=== PATIENT | female | born 2000 | race Caucasian/White ===

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

== ENCOUNTER → 2021-10-26 14:50 | Outpatient (CLI) | payer OTHER, SELFPAY ==
[2021-10-26 15:43] LABS: Appearance Urine UA CLEAR; Bilirubin Urine UA NEGATIVE (NEGATIVE); Color Urine UA YELLOW; Glucose Urine UA NEGATIVE (Negative); Ketones Urine UA NEGATIVE (NEGATIVE); Leukocyte Esterase Urine UA NEGATIVE (NEGATIVE); Nitrite Urine UA NEGATIVE (Negative); Occult Blood Urine UA NEGATIVE (Negative); Protein Urine UA NEGATIVE (Negative); Urobilinogen Urine UA 0.2 E.U./dL (0.2)
[2021-10-26 15:46] LABS: pH Urine UA 6.5 (4.5-8.0)
[2021-10-26 16:45] LABS: Add Manual Diff / Slide Review NO; Basophils Absolute Auto 0 /uL (0-100); Basophils Percent Auto 0.1 % (0-2); Eosinophils Absolute Auto 100 /uL (0-450); Eosinophils Percent Auto 0.7 % (2-4); Hematocrit 36.7 % (36-46); Hemoglobin 12.9 g/dL (12.0-16.0); Lymphocytes Absolute Auto 1600 /uL (1100-4500); Lymphocytes Percent Auto 17.6 % (25-40); Mean Corpuscular HGB Conc 35.1 % (30-36); Mean Corpuscular Hemoglobin 29.3 PG (26-34); Mean Corpuscular Volume 83.6 fL (80-100); Monocytes Absolute Auto 500 /uL (0-900); Monocytes Percent Auto 5.3 % (3-14); Neutrophils Absolute Auto 7000 /uL (1500-7000); Neutrophils Percent Auto 76.3 % (50-75); Platelet Count 238 X10^3/uL (150-400); Red Blood Cell Count 4.39 X10^6/uL (4.0-5.2); Red Cell Distribution Width 12.4 % (11.6-14.8); White Blood Cell Count 9.1 X10^3/uL (4.5-11.0)
[2021-10-26 17:12] LABS: Urine N gonorrhoeae NOT DETECTED
[2021-10-26 18:12] LABS: Urine Chlamydia NOT DETECTED
[2021-10-27 09:46] LABS: RPR Screen Non Reactive (Non Reactive)
[2021-10-27 10:17] LABS: Varicella IgG Antibody 1882 index (Immune >165)
[2021-10-28 15:48] LABS: Hepatitis B Surface Antigen NEGATIVE s/c (NEGATIVE); Rubella Antibody IgG 15.3 IU/mL (>15)
[2021-10-28 15:57] LABS: HIV 1 & 2 Ab/Ag 4th Gen Combo NEGATIVE (NEGATIVE); Hep C Virus Ab w/Reflex Quant NEGATIVE s/c (NEGATIVE)
== END ==
PROVIDERS: PCP Nurse Practitioner Family; Referring Provider Family Medicine; Visit Provider Family Medicine
DX: Z34.01 Encounter for supervision of normal first pregnancy, first trimester (principal); Z3A.09 9 weeks gestation of pregnancy
CPT/HCPCS: 36415; 80055; 81003; 86787; 86803; 86850; 86900; 86901; 87086; 87389; 87491; 87591

== ENCOUNTER → 2022-01-13 10:40 | Outpatient (CLI) | payer OTHER, SELFPAY ==
--- NOTE | 2022-01-13 10:43 | DI.US.S_ITS ---
PROCEDURE: US OB >= 14 WEEKS FETUS INDICATIONS: ANATOMY SCREEN OUTSIDE/PRIOR DATING DATA: Last menstrual period (LMP): 08/24/2021 LMP-based estimated date of delivery (ADOLFO): 05/31/2022. First dating scan (date and location): Today. TECHNIQUE: Real-time scanning was performed of the fetus, with image documentation and biometric measurements. COMPARISON: None. FINDINGS: General: A single living intrauterine gestation is present. Presentation: Cephalic. Placenta: Placental position is anterior , without previa. Amniotic fluid index: Not reported heart rate: 149 beats per minute. Maternal cervical canal: 4.6 cm long. Normal lower limit is 2.5 cm. biometrics: Biparietal diameter: 4.8 cm. 20 weeks 4 days. Head circumference: 18.2 cm. 20 weeks 4 days. Abdominal circumference: 14.5 cm. 19 weeks 6 days. Femur length: 3.5 cm. 21 weeks 0 days. Composite gestational age from present scan: 20 weeks 4 days Estimated weight and percentile: 351 grams. 51st percentile. Anatomic survey: Neuro: Ventricles are non-dilated at less than 10 mm. Cisterna magna is normal at 3-11 mm. Cerebellum is normal in size and morphology. Nuchal skin fold: Normal at less than 6 mm between 14-21 weeks gestational age. Face: Nose and lips, facial profile are normal. Spine: No evidence for spina bifida. Heart: 4-chambered heart is present, with normal ventricular outflow tracts. Diaphragm: Diaphragm is intact. Stomach: Left-sided stomach is present. Kidneys: No hydronephrosis. Normal is less than 5 mm in 2nd trimester, less than 7 mm in 3rd trimester. Cord: 3-vessel cord has orthotopic insertion. Bladder: Normal in size. Extremities: The right and left lower limbs were not visualized well due to being under the baby's kidneys and difficulty with visualization. IMPRESSION: 1. Single live intrauterine . 2. Visualized anatomy is normal, however the feet were not well visualized. We strive to produce accurate, complete, and clear reports of imaging services. To assist us in improving patient care, this report was composed using standard report templates and voice recognition software. Therefore, it may contain abnormal punctuation, insertions and/or omissions. Occasional wrong-word or sound-alike substitutions may occur. Though we review the report and make efforts to correct it, we do recommend that the report be read carefully in proper context to recognize any text inaccuracies. Dictated by: Camilo Gates M.D. on 01/13/2022 at 14:34 Approved by: Camilo Gates M.D. on 01/13/2022 at 14:38
== END ==
PROVIDERS: PCP Nurse Practitioner Family; Referring Provider Family Medicine; Visit Provider Family Medicine
DX: Z34.92 Encounter for supervision of normal pregnancy, unspecified, second trimester (principal); Z3A.20 20 weeks gestation of pregnancy
CPT/HCPCS: 76811

== ENCOUNTER → 2022-01-26 10:39 | Outpatient (CLI) | payer OTHER, SELFPAY ==
--- NOTE | 2022-01-26 10:41 | DI.US.S_ITS ---
PROCEDURE: US OB FOLLOW UP INDICATIONS: FOLLOW UP 01/13/22 ANATOMY SCAN, FEET NOT SEEN OUTSIDE/PRIOR DATING DATA: Last menstrual period (LMP): 08/24/2021. LMP-based estimated date of delivery (ADOLFO): 05/31/2022. First dating scan (date and location): 01/13/2022. Estimated date of delivery (ADOLFO) from first dating scan: 05/29/2022. TECHNIQUE: Real-time scanning was performed of the fetus, with image documentation and biometric measurements. Endovaginal scanning: Non COMPARISON: None. FINDINGS: General: A single living intrauterine gestation is present. Presentation: Cephalic. Placenta: Placental position is anterior , without previa. Amniotic fluid index: 14.2 cm, normal range is 5-24 cm. Single deepest vertical pocket is 4.9 cm. heart rate: 149 beats per minute. Maternal cervical canal: 3.5 cm long. Normal lower limit is 2.5 cm. Clinically estimated gestational age: 22 week 1 day Anatomic survey: Visualized anatomy is within normal limits. feet are still suboptimally visualized IMPRESSION: Suboptimally visualized feet and ankles ankles. Consider additional follow-up Single live intrauterine consistent with 22 week 1 day gestation Approved by: Venkata Milian M.D. on 01/26/2022 at 15:35
== END ==
PROVIDERS: PCP Nurse Practitioner Family; Referring Provider Family Medicine; Visit Provider Family Medicine
DX: Z34.90 Encounter for supervision of normal pregnancy, unspecified, unspecified trimester (principal); Z36.2 Encounter for other antenatal screening follow-up; Z3A.22 22 weeks gestation of pregnancy
CPT/HCPCS: 76816

== ENCOUNTER 2022-02-18 12:05 | Outpatient (CLI) | payer OTHER, SELFPAY | END 2022-02-18 12:50 | disposition home or self-care (01) | LOC: OB 02-21 17:14 | PROVIDERS: PCP Nurse Practitioner Family; Referring Provider Family Medicine; Visit Provider Family Medicine | DX: Z34.02 Encounter for supervision of normal first pregnancy, second trimester (principal); Z3A.25 25 weeks gestation of pregnancy | CPT/HCPCS: 36415; 59025; 80053; 82570; 84156; 85025; G0378; G0379 ==

== ENCOUNTER → 2022-02-18 12:54 | Outpatient (CLI) | payer OTHER, SELFPAY ==
[2022-02-18 14:17] LABS: Add Manual Diff / Slide Review NO; Basophils Absolute Auto 0 /uL (0-100); Eosinophils Absolute Auto 0 /uL (0-450); Eosinophils Percent Auto 0.5 % (2-4); Hematocrit 32.2 % (36-46); Hemoglobin 11.4 g/dL (12.0-16.0); Lymphocytes Absolute Auto 1000 /uL (1100-4500); Lymphocytes Percent Auto 10.3 % (25-40); Mean Corpuscular HGB Conc 35.5 % (30-36); Mean Corpuscular Hemoglobin 30.8 PG (26-34); Mean Corpuscular Volume 86.7 fL (80-100); Monocytes Absolute Auto 400 /uL (0-900); Monocytes Percent Auto 4.4 % (3-14); Neutrophils Absolute Auto 8400 /uL (1500-7000); Neutrophils Percent Auto 84.8 % (50-75); Platelet Count 204 X10^3/uL (150-400); Red Blood Cell Count 3.71 X10^6/uL (4.0-5.2); White Blood Cell Count 9.9 X10^3/uL (4.5-11.0)
[2022-02-18 14:44] LABS: Alanine Aminotransferase 16 IU/L (<35); Albumin 3.5 g/dL (3.5-5.0); Albumin Globulin Ratio 1.2 (1.0-2.8); Alkaline Phosphatase 86 U/L (38-126); Aspartate Aminotransferase 18 IU/L (14-36); BUN Creatinine Ratio 14.1 (6-22); Bilirubin Total 0.4 mg/dL (0.2-1.3); Blood Urea Nitrogen 10 mg/dL (7-17); Calcium 9.2 mg/dL (8.4-10.2); Carbon Dioxide 23 mmol/L (22-32); Chloride 103 mmol/L (98-107); Estimated Glomerular Filt Rate > 60 mL/min (>60); Glucose 112 mg/dL (70-100); HEMOLYSIS < 15 (0-50); Potassium 3.7 mmol/L (3.4-5.1); Sodium 135 mmol/L (137-145); Total Protein 6.5 g/dL (6.3-8.2)
[2022-02-18 15:29] LABS: Creatinine Urine Random 42.2 mg/dL; Protein (Total) Urine Random 14 mg/dL (0-12); Protein Creatinine Ratio Urine 0.33 GRAM/24H
== END ==
PROVIDERS: PCP Nurse Practitioner Family; Referring Provider Family Medicine; Visit Provider Family Medicine
DX: Z34.02 Encounter for supervision of normal first pregnancy, second trimester (principal); Z3A.25 25 weeks gestation of pregnancy
CPT/HCPCS: 36415; 80053; 82570; 84156; 85025

== ENCOUNTER → 2022-02-28 13:04 | Outpatient (CLI) | payer OTHER, SELFPAY ==
[2022-02-28 16:07] LABS: GTT (PREG) 1 Hour PP 50gm Dose 168 mg/dL (76-139)
== END ==
PROVIDERS: PCP Nurse Practitioner Family; Referring Provider Family Medicine; Visit Provider Family Medicine
DX: Z34.92 Encounter for supervision of normal pregnancy, unspecified, second trimester (principal); Z3A.25 25 weeks gestation of pregnancy
CPT/HCPCS: 36415; 82950

== ENCOUNTER → 2022-03-28 10:31 | Outpatient (CLI) | payer OTHER, SELFPAY ==
[2022-03-28 11:34] LABS: Glucose Fasting 81 mg/dL (70-100)
[2022-03-28 13:43] LABS: Glucose 2 Hour 156 mg/dL (70-140)
[2022-03-28 13:51] LABS: Glucose 1 Hour 167 mg/dL (70-170)
[2022-03-28 14:07] LABS: Glucose Tol Interpretation INTERPRETATION
[2022-03-28 14:20] LABS: Glucose 3 Hour 102 mg/dL (70-115)
== END ==
PROVIDERS: Family Medicine; PCP Nurse Practitioner Family; Visit Provider Physician Assistant
DX: Z34.01 Encounter for supervision of normal first pregnancy, first trimester (principal); R73.9 Hyperglycemia, unspecified
CPT/HCPCS: 82951; 82952

== ENCOUNTER 2022-04-11 11:28 | Outpatient (CLI) | payer OTHER, SELFPAY ==
--- NOTE | 2022-04-11 11:35 | PM.OBTRLD ---
Visit Information Visit Information Date of evaluation: 04/11/22 Primary OB Provider: Annabel Bradley Comments/Additional reasons for admission: 21yo at 32w5d here for NST for chronic HTN. She is feeling her baby move regularly. No LOF, vaginal bleeding, contractions. REPLACED BY [facility] Medical History (Updated 04/11/22 @ 12:14 by Annabel Bradley MD) Acne (~2016) ADHD (~2008) Vision disorder Surgical History (Updated 11/25/21 @ 20:31 by Mariam Sotomayor) Anesthesia H/O tympanostomy (~2002) [place] teeth extracted Family History (Updated 11/25/21 @ 20:33 by Mariam Sotomayor) Family/Other Hypertension Adopted Mother Family estrangement Mental health problem Father Hypertension Sister Mental health problem Grandfather History of heart disease Social History marital status: number of children: 0 household members: spouse lives independently: Yes housing: apartment pets and animals: Yes (1 dog, 1 tortoise) education level: vocational occupational status: employed current occupational exposures/hazards: No special leo needs: No seatbelt use: always water heater temp set < 120 deg: No working smoke detector in home: Yes fire extinguisher in home: Yes carbon monox detector in home: Yes firearms in home: No do you feel safe at home: Yes Smoking Status: Former smoker Tobacco: How many years used: 2 second hand exposure: No alcohol intake: never substance use type: does not use during the past year weight has: remained stable well-balanced diet: daily or most days daily servings fruits/ve-4 caffeine: Yes Type(s) of exercise: walking and regular exercise frequency: 3-4 times per week Evaluation Evaluation Baseline heart rate: 150 Variability: Moderate (11-25) monitor accelerations: Present Monitor Decelerations: Absent Category of Tracing: Reactive Diagnosis, Plan/Disposition Final Diagnosis (1) Primary hypertension: Status: Acute (2) 32 weeks gestation of : Status: Acute Plan/Disposition Plan: 21yo at 32w5d her for NST for cHTN. NST reactive. BP good range. Continue regular testing. OB Disposition: home
== END 2022-04-11 12:05 | disposition home or self-care (01) ==
LOC: OB 04-13 08:15
PROVIDERS: PCP Nurse Practitioner Family; Referring Provider Family Medicine; Visit Provider Family Medicine
DX: O10.913 Unspecified pre-existing hypertension complicating pregnancy, third trimester (principal); Z3A.32 32 weeks gestation of pregnancy
CPT/HCPCS: 59025; G0378; G0379

== ENCOUNTER → 2022-04-12 14:32 | Outpatient (CLI) | payer OTHER, SELFPAY ==
--- NOTE | 2022-04-13 16:24 | DIAB.GDA ---
Initial Gestational Diabetes Assessment Name: Brenda Sesay Date:04/12/22 Time:5-537p Dx: Gestational Diabetes Provider:Kirk ADOLFO:06/01/22 Weeks: 33 Brenda presents today for virtual visit by VSEE. Reports she is unsure of DM family hx since her father is adopted. States she has changed her diet quite a bit since diagnosis, cutting out most carbs. Reports normally eating pasta frequently due to 's [place] ethnic background. Diagnosed with HTN by MFM per provider notes. BP in goal range. 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 States she has limited education on GDM, though is aware that the baby can have hypoglycemia . Diet Recall: Wake: 530a 7a: omelet with 3 eggs, cheese, turkey lambert 12p: salad with chicken Sn: apple sauce or cheese 7p: zucchini and cauliflower rice with protein Beverages: water 80oz It?s a boy! 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 Self-Monitoring Blood Glucose: Checking FBG and 2 hour. Goes to bed 1.5 hours after dinner, so often misses the 2 hour dinner. All readings well within goal, except one elevated FBG of 99. Some pc readings <100 due to very low carb diet. Date Pre Post Pre Post Pre Post 04/06 78 85 105 04/07 89 80 84 04/08 99 85 85 04/09 83 89 95 04/10 90 95 107 Family thanksgiving 04/11 83 84 104 04/12 95 86 88 Diabetes Medications: None Pertinent Labs:OGTT: 81, 167, 156H 102 Nutrition Rx: Carbohydrates: Daily: 180 Meal: 45-60g lunch and dinner; 30g breakfast Snack: 15-30g Nutrition Diagnosis: Altered nutrition related lab value r/t GDM dx aeb recent OGTT Inadequate CHO intake r/t <180g per day during due to nutrition knowledge deficit aeb diet recall Self monitoring deficit r/t unaware she can check 1 hour after dinner aeb pt report and SMBG Intervention: This participant was very receptive. Provided appropriate educational handouts. Discussed the following topics: GDM pathophysiology and impact of hyperglycemia on mom and baby Risk for T2DM for mom and baby in the future Ways to reduce risk T2DM Plate Method, meal timing, carb counting, pairing macronutrients and spreading out CHO for better BG management Blood glucose goals (FBG: <95 and 2 hour 100-120 mg/dL and 1 hour 110-140mg/dl prn); importance of checking 4x per day (FBG and pc) Impact of macronutrients on blood glucose Recommended servings for carbohydrates at meals and snacks Brainstormed appropriate meal plan based on her food preferences Role of physical activity and following provider guidelines for safety Goals: Add some carbs into diet in moderation Measure carb portions For dinner, check 1 hour and label as 1 hour (goal <140) Follow-up: RENETTA CONNOLLY follow-up in 2 weeks Hortensia Barney RDN, SHAMIKAES Certified Diabetes Care and Photographers' Model T: [phone] F: [phone] [email or web address] Thank you for this referral
== END ==
PROVIDERS: PCP Nurse Practitioner Family; Referring Provider Family Medicine; Visit Provider Family Medicine
DX: O24.419 Gestational diabetes mellitus in pregnancy, unspecified control (principal); Z3A.33 33 weeks gestation of pregnancy; Z71.3 Dietary counseling and surveillance
CPT/HCPCS: 97802

== ENCOUNTER 2022-04-15 11:41 | Outpatient (CLI) | payer OTHER, SELFPAY ==
--- NOTE | 2022-04-15 12:33 | P.TNLD_ITS ---
Visit Information Visit Information Date of evaluation: 04/15/22 Primary OB Provider: Annabel Bradley On-call OB Provider: Hemant Mcbride Reason for Evaluation: Yes non-stress test Comments/Additional reasons for admission: 21 yo at 33+2 weeks EGA presenting for her weekly NST due to her history of chronic hypertension. [facility] Medical History (Updated 04/11/22 @ 12:14 by Annabel Bradley MD) Acne (~2016) ADHD (~2008) Vision disorder Surgical History (Updated 11/25/21 @ 20:31 by Mariam Sotomayor) Anesthesia H/O tympanostomy (~2002) [place] teeth extracted Family History (Updated 11/25/21 @ 20:33 by Mariam Sotomayor) Family/Other Hypertension Adopted Mother Family estrangement Mental health problem Father Hypertension Sister Mental health problem Grandfather History of heart disease Social History marital status: number of children: 0 household members: spouse lives independently: Yes housing: apartment pets and animals: Yes (1 dog, 1 tortoise) education level: vocational occupational status: employed current occupational exposures/hazards: No special leo needs: No seatbelt use: always water heater temp set < 120 deg: No working smoke detector in home: Yes fire extinguisher in home: Yes carbon monox detector in home: Yes firearms in home: No do you feel safe at home: Yes Smoking Status: Former smoker Tobacco: How many years used: 2 second hand exposure: No alcohol intake: never substance use type: does not use during the past year weight has: remained stable well-balanced diet: daily or most days daily servings fruits/ve-4 caffeine: Yes Type(s) of exercise: walking and regular exercise frequency: 3-4 times per week Evaluation Evaluation Baseline heart rate: 145 Variability: Moderate (11-25) monitor accelerations: Present Monitor Decelerations: Absent Category of Tracing: Reactive Status: Category l Diagnosis, Plan/Disposition Plan/Disposition Plan: Continue pernatal care plan including weekly surveillance.
== END 2022-04-15 12:30 | disposition home or self-care (01) ==
LOC: OB 04-17 11:22
PROVIDERS: PCP Nurse Practitioner Family; Referring Provider Family Medicine; Visit Provider Family Medicine
DX: O10.913 Unspecified pre-existing hypertension complicating pregnancy, third trimester (principal); Z3A.33 33 weeks gestation of pregnancy
CPT/HCPCS: 59025; G0378; G0379

== ENCOUNTER → 2022-04-26 17:11 | Outpatient (CLI) | payer OTHER, SELFPAY ==
[2022-04-26 18:39] LABS: Alanine Aminotransferase 15 IU/L (<35); Albumin 3.9 g/dL (3.5-5.0); Albumin Globulin Ratio 1.1 (1.0-2.8); Alkaline Phosphatase 142 U/L (38-126); Aspartate Aminotransferase 19 IU/L (14-36); BUN Creatinine Ratio 19.4 (6-22); Bilirubin Total 0.4 mg/dL (0.2-1.3); Blood Urea Nitrogen 12 mg/dL (7-17); Calcium 10.3 mg/dL (8.4-10.2); Carbon Dioxide 21 mmol/L (22-32); Chloride 100 mmol/L (98-107); Estimated Glomerular Filt Rate > 60 mL/min (>60); Globulin 3.4 g/dL (1.7-4.1); Glucose 86 mg/dL (70-100); HEMOLYSIS < 15 (0-50); Potassium 3.8 mmol/L (3.4-5.1); Sodium 131 mmol/L (137-145); Total Protein 7.3 g/dL (6.3-8.2); Uric Acid 4.5 mg/dL (2.5-6.2)
[2022-04-26 19:22] LABS: Add Manual Diff / Slide Review NO; Basophils Absolute Auto 0 /uL (0-100); Basophils Percent Auto 0.1 % (0-2); Eosinophils Absolute Auto 100 /uL (0-450); Eosinophils Percent Auto 0.6 % (2-4); Hematocrit 33.3 % (36-46); Hemoglobin 11.6 g/dL (12.0-16.0); Lymphocytes Absolute Auto 1400 /uL (1100-4500); Lymphocytes Percent Auto 14.3 % (25-40); Mean Corpuscular Hemoglobin 29.9 PG (26-34); Mean Corpuscular Volume 85.6 fL (80-100); Monocytes Absolute Auto 500 /uL (0-900); Monocytes Percent Auto 5.5 % (3-14); Neutrophils Absolute Auto 7600 /uL (1500-7000); Neutrophils Percent Auto 79.5 % (50-75); Platelet Count 199 X10^3/uL (150-400); Red Blood Cell Count 3.89 X10^6/uL (4.0-5.2); White Blood Cell Count 9.5 X10^3/uL (4.5-11.0)
[2022-04-26 19:47] LABS: Creatinine Urine Random 102.4 mg/dL; Protein (Total) Urine Random 14 mg/dL (0-12); Protein Creatinine Ratio Urine 0.13 GRAM/24H
== END ==
PROVIDERS: PCP Nurse Practitioner Family; Referring Provider Family Medicine; Visit Provider Family Medicine
DX: Z3A.25 25 weeks gestation of pregnancy; O14.92 Unspecified pre-eclampsia, second trimester
CPT/HCPCS: 36415; 80053; 82570; 84156; 84550; 85025

== ENCOUNTER 2022-04-26 17:26 | Outpatient (CLI) | payer OTHER, SELFPAY ==
--- NOTE | 2022-04-26 18:14 | P.TNLD_ITS ---
Visit Information Visit Information Date of evaluation: 04/26/22 Primary OB Provider: Annabel Bradley On-call OB Provider: Hemant Mcbride Reason for Evaluation: Yes non-stress test Comments/Additional reasons for admission: 21 yo at 34+6 w/ chronic HTN and GDM A1 PFSH Medical History (Updated 04/11/22 @ 12:14 by Annabel Bradley MD) Acne (~2016) ADHD (~2008) Vision disorder Surgical History (Updated 11/25/21 @ 20:31 by Mariam Sotomayor) Anesthesia H/O tympanostomy (~2002) [place] teeth extracted Family History (Updated 11/25/21 @ 20:33 by Mariam Sotomayor) Family/Other Hypertension Adopted Mother Family estrangement Mental health problem Father Hypertension Sister Mental health problem Grandfather History of heart disease Social History marital status: number of children: 0 household members: spouse lives independently: Yes housing: apartment pets and animals: Yes (1 dog, 1 tortoise) education level: vocational occupational status: employed current occupational exposures/hazards: No special leo needs: No seatbelt use: always water heater temp set < 120 deg: No working smoke detector in home: Yes fire extinguisher in home: Yes carbon monox detector in home: Yes firearms in home: No do you feel safe at home: Yes Smoking Status: Former smoker Tobacco: How many years used: 2 second hand exposure: No alcohol intake: never substance use type: does not use during the past year weight has: remained stable well-balanced diet: daily or most days daily servings fruits/ve-4 caffeine: Yes Type(s) of exercise: walking and regular exercise frequency: 3-4 times per week
== END 2022-04-26 18:14 | disposition home or self-care (01) ==
LOC: LABOR 17:38 → OB 05-05 16:17
PROVIDERS: PCP Nurse Practitioner Family; Referring Provider Family Medicine; Visit Provider Family Medicine
DX: O24.419 Gestational diabetes mellitus in pregnancy, unspecified control (principal); O10.913 Unspecified pre-existing hypertension complicating pregnancy, third trimester; Z3A.34 34 weeks gestation of pregnancy; O14.92 Unspecified pre-eclampsia, second trimester; Z3A.25 25 weeks gestation of pregnancy
CPT/HCPCS: 36415; 59025; 80053; 82570; 84156; 84550; 85025; G0378; G0379

== ENCOUNTER → 2022-04-27 13:48 | Outpatient (CLI) | payer OTHER, SELFPAY ==
--- NOTE | 2022-04-27 16:49 | DIAB.GDFU ---
Follow-up Gestational Diabetes Assessment Name: Brenda Sesay Date: 04/27/22 Time: 108-130p Dx: Gestational Diabetes Provider:Kirk ADOLFO:06/01/22 Weeks: 35 Brenda presents today for virtual visit by MILLY. Added some carbs back into her diet in moderation, as discussed. Measuring pasta, 1cup. Satisfied with portions. MFM increased labetalol to 200. Reports plan for induction at 39 weeks. Breakfast high in carb intake, but she reports in goal BG. May benefit from a 1 hour check to see if BG in goal at that time as well. Don't anticipate hyperglycemia, but with >30g at breakfast may be worth a check. 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 Self-Monitoring Blood Glucose: Checking FBG and 2 hour. Goes to bed 1.5 hours after dinner, so often misses the 2 hour dinner. Has trialled 1 hour checks at dinner, BG always in goal. reports FB-94mg/dL and 2 hour: mid 90-low 100s. Checked a few after dinner numbers. Always under 120 at 1 hour. Diabetes Medications: None Pertinent Labs:OGTT: 81, 167, 156H 102 Nutrition Rx: Carbohydrates: Daily: 180 Meal: 45-60g lunch and dinner; 30g breakfast Snack: 15-30g Nutrition Diagnosis: Altered nutrition related lab value r/t GDM dx aeb recent OGTT Inadequate CHO intake r/t <180g per day during due to nutrition knowledge deficit aeb diet recall- improved Self monitoring deficit r/t unaware she can check 1 hour after dinner aeb pt report and SMBG - improved Intervention: This participant was very receptive. Provided appropriate educational handouts. Discussed the following topics: Recent blood sugar results Breakfast recs for carb/protein Benefits, resources, and nutrition for recommendations for nutrition and physical activity recommendations for T2DM risk reduction OGTT at 6-12 weeks Checking blood sugars twice per week (goal: fasting <100 mg/dL and 2 hour pc <140 mg/dL) until 6 week check-up HgA1c q 1-3 years. Goals: Add some carbs into diet in moderation- met Measure carb portions- met For dinner, check 1 hour and label as 1 hour (goal <140)- met Check breakfast BG at 1 hour a couple times to check for hyperglycemia- new OGTT at 6-12 weeks and HgA1c q 1-3 years- new Follow-up: RENETTA CONNOLLY follow-up prn. Brenda is managing her BG well. Encouraged her to call or message with questions or follow-up needs. She agreed with this plan. Hortensia Barney RDN, CATHLEEN Certified Diabetes Care and Procedure Writer T: [phone] F: [phone] [email or web address] Thank you for this referral
== END ==
PROVIDERS: PCP Nurse Practitioner Family; Referring Provider Family Medicine; Visit Provider Family Medicine
DX: O24.419 Gestational diabetes mellitus in pregnancy, unspecified control (principal); Z3A.35 35 weeks gestation of pregnancy; Z71.3 Dietary counseling and surveillance
CPT/HCPCS: 97803

== ENCOUNTER 2022-04-29 17:39 | Outpatient (CLI) | payer OTHER, SELFPAY | END 2022-04-29 18:12 | disposition home or self-care (01) | LOC: OB 05-05 16:08 | PROVIDERS: PCP Nurse Practitioner Family; Referring Provider Family Medicine; Visit Provider Family Medicine | DX: O24.419 Gestational diabetes mellitus in pregnancy, unspecified control (principal); O10.913 Unspecified pre-existing hypertension complicating pregnancy, third trimester; Z3A.35 35 weeks gestation of pregnancy | CPT/HCPCS: 59025; G0378; G0379 ==

== ENCOUNTER → 2022-05-02 09:20 | Outpatient (CLI) | payer OTHER, SELFPAY ==
[2022-05-03 14:52] LABS: Strep Grp B PCR NEG for Grp B Strep
== END ==
PROVIDERS: PCP Nurse Practitioner Family; Visit Provider Family Medicine
DX: Z36.85 Encounter for antenatal screening for Streptococcus B (principal)
CPT/HCPCS: 87653

== ENCOUNTER 2022-05-02 10:59 | Outpatient (CLI) | payer OTHER, SELFPAY ==
--- NOTE | 2022-05-02 11:28 | P.TNLD_ITS ---
Visit Information Visit Information Date of evaluation: 05/02/22 Primary OB Provider: Annabel Bradley Comments/Additional reasons for admission: 21 yo at 35w5d here for NST for chronic HTN. Pt is feeling her baby move regularly. No LOF, vaginal bleeding, contractions. No signs/symptoms of pre- eclampsia. [facility] Medical History (Updated 05/02/22 @ 11:17 by Annabel Bradley MD) Acne (~2016) ADHD (~2008) Vision disorder Surgical History (Updated 11/25/21 @ 20:31 by aMriam Sotomayor) Anesthesia H/O tympanostomy (~2002) [place] teeth extracted Family History (Updated 11/25/21 @ 20:33 by Mariam Sotomayor) Family/Other Hypertension Adopted Mother Family estrangement Mental health problem Father Hypertension Sister Mental health problem Grandfather History of heart disease Social History marital status: number of children: 0 household members: spouse lives independently: Yes housing: apartment pets and animals: Yes (1 dog, 1 tortoise) education level: vocational occupational status: employed current occupational exposures/hazards: No special leo needs: No seatbelt use: always water heater temp set < 120 deg: No working smoke detector in home: Yes fire extinguisher in home: Yes carbon monox detector in home: Yes firearms in home: No do you feel safe at home: Yes Smoking Status: Former smoker Tobacco: How many years used: 2 second hand exposure: No alcohol intake: never substance use type: does not use during the past year weight has: remained stable well-balanced diet: daily or most days daily servings fruits/ve-4 caffeine: Yes Type(s) of exercise: walking and regular exercise frequency: 3-4 times per week Evaluation Evaluation Baseline heart rate: 150 Variability: Moderate (11-25) monitor accelerations: Present Monitor Decelerations: Absent Category of Tracing: Reactive Diagnosis, Plan/Disposition Final Diagnosis (1) Primary hypertension: Status: Acute Plan/Disposition Plan: 21 yo at 35w5d here for NST for chronic HTN. also complicated by GDMA1. NST reactive. Continue testing. OB Disposition: home
== END 2022-05-02 11:32 | disposition home or self-care (01) ==
LOC: OB 05-05 16:12
PROVIDERS: PCP Nurse Practitioner Family; Referring Provider Family Medicine; Visit Provider Family Medicine
DX: O24.419 Gestational diabetes mellitus in pregnancy, unspecified control (principal); O10.913 Unspecified pre-existing hypertension complicating pregnancy, third trimester; Z3A.35 35 weeks gestation of pregnancy; Z36.85 Encounter for antenatal screening for Streptococcus B
CPT/HCPCS: 59025; 87653; G0378; G0379

== ENCOUNTER 2022-05-06 17:53 | Outpatient (CLI) | payer OTHER, SELFPAY | END 2022-05-06 18:24 | disposition home or self-care (01) | LOC: LABOR 17:55 → OB 05-12 12:27 | PROVIDERS: PCP Nurse Practitioner Family; Referring Provider Family Medicine; Visit Provider Family Medicine | DX: O10.913 Unspecified pre-existing hypertension complicating pregnancy, third trimester (principal); O24.419 Gestational diabetes mellitus in pregnancy, unspecified control; Z3A.36 36 weeks gestation of pregnancy | CPT/HCPCS: 59025; G0378; G0379 ==

== ENCOUNTER 2022-05-09 11:11 | Observation (INO) | payer OTHER, SELFPAY ==
--- NOTE | 2022-05-09 11:45 | P.TNLD_ITS ---
Visit Information Visit Information Date of evaluation: 05/09/22 Primary OB Provider: Annabel Bradley Comments/Additional reasons for admission: 21yo at 36w5d here for NST for chronic HTN. Pt denies any headaches, vision changes, RUQ pain, worsening swelling. Her BPs at home have been in normal range. She is feeling her baby move regularly. [facility]END[facility] S[facility] TO [facility] Medical History (Updated 05/09/22 @ 11:47 by Annabel Bradley MD) Acne (~2016) ADHD (~2008) Vision disorder Surgical History (Updated 11/25/21 @ 20:31 by Mariam Sotomayor) Anesthesia H/O tympanostomy (~2002) [place] teeth extracted Family History (Updated 11/25/21 @ 20:33 by Mariam Sotomayor) Family/Other Hypertension Adopted Mother Family estrangement Mental health problem Father Hypertension Sister Mental health problem Grandfather History of heart disease Social History marital status: number of children: 0 household members: spouse lives independently: Yes housing: apartment pets and animals: Yes (1 dog, 1 tortoise) education level: vocational occupational status: employed current occupational exposures/hazards: No special leo needs: No seatbelt use: always water heater temp set < 120 deg: No working smoke detector in home: Yes fire extinguisher in home: Yes carbon monox detector in home: Yes firearms in home: No do you feel safe at home: Yes Smoking Status: Former smoker Tobacco: How many years used: 2 second hand exposure: No alcohol intake: never substance use type: does not use during the past year weight has: remained stable well-balanced diet: daily or most days daily servings fruits/ve-4 caffeine: Yes Type(s) of exercise: walking and regular exercise frequency: 3-4 times per week Objective Labs Result Diagrams: 05/09/22 12:41 05/09/22 12:41 Evaluation Evaluation Baseline heart rate: 135 Variability: Moderate (11-25) monitor accelerations: Present Monitor Decelerations: Absent Category of Tracing: Reactive Diagnosis, Plan/Disposition Final Diagnosis (1) 36 weeks gestation of : Status: Acute (2) Primary hypertension: Status: Acute Plan/Disposition Plan: 21yo at 36w5d here for NST for chronic HTN. also complicated by GDMA1. NST reactive, however pts BPs noted to be elevated repeatedly initially. Pt asymptomatic. Labs without HELLP/Pre-eclampsia. Stable for d/c home. Pt will continue checking BPs at home regularly, which have reportedly been normal range. Continue testing, IOL at 39wks for now. OB Disposition: home
[2022-05-09 12:51] LABS: Add Manual Diff / Slide Review NO; Basophils Absolute Auto 0 /uL (0-100); Basophils Percent Auto 0.3 % (0-2); Eosinophils Absolute Auto 100 /uL (0-450); Eosinophils Percent Auto 1.2 % (2-4); Hematocrit 31.2 % (36-46); Hemoglobin 11.2 g/dL (12.0-16.0); Lymphocytes Absolute Auto 1200 /uL (1100-4500); Lymphocytes Percent Auto 16.8 % (25-40); Mean Corpuscular HGB Conc 35.7 % (30-36); Mean Corpuscular Hemoglobin 30.4 PG (26-34); Monocytes Absolute Auto 400 /uL (0-900); Monocytes Percent Auto 5.5 % (3-14); Neutrophils Absolute Auto 5600 /uL (1500-7000); Neutrophils Percent Auto 76.2 % (50-75); Platelet Count 195 X10^3/uL (150-400); Red Blood Cell Count 3.67 X10^6/uL (4.0-5.2); Red Cell Distribution Width 12.9 % (11.6-14.8); White Blood Cell Count 7.4 X10^3/uL (4.5-11.0)
[2022-05-09 13:05] LABS: Alanine Aminotransferase 15 IU/L (<35); Albumin 3.6 g/dL (3.5-5.0); Albumin Globulin Ratio 1.1 (1.0-2.8); Alkaline Phosphatase 148 U/L (38-126); Aspartate Aminotransferase 18 IU/L (14-36); BUN Creatinine Ratio 21.1 (6-22); Bilirubin Total 0.4 mg/dL (0.2-1.3); Blood Urea Nitrogen 12 mg/dL (7-17); Calcium 8.8 mg/dL (8.4-10.2); Carbon Dioxide 21 mmol/L (22-32); Chloride 105 mmol/L (98-107); Estimated Glomerular Filt Rate > 60 mL/min (>60); Globulin 3.4 g/dL (1.7-4.1); Glucose 108 mg/dL (70-100); HEMOLYSIS < 15 (0-50); Potassium 3.8 mmol/L (3.4-5.1); Sodium 133 mmol/L (137-145)
[2022-05-09 13:18] LABS: Creatinine Urine Random 156.7 mg/dL; Protein (Total) Urine Random 12 mg/dL (0-12); Protein Creatinine Ratio Urine 0.07 GRAM/24H
== END 2022-05-09 13:15 | disposition home or self-care (01) ==
PROVIDERS: Admitting Provider Family Medicine; PCP Nurse Practitioner Family; Referring Provider Family Medicine; Visit Provider Family Medicine
DX: O24.419 Gestational diabetes mellitus in pregnancy, unspecified control (principal); O10.913 Unspecified pre-existing hypertension complicating pregnancy, third trimester; Z3A.36 36 weeks gestation of pregnancy
CPT/HCPCS: 59025; 80053; 82570; 84156; 85025; G0378; G0379

== ENCOUNTER 2022-05-09 17:47 | Outpatient (CLI) | payer OTHER, SELFPAY | END 2022-05-09 18:30 | disposition home or self-care (01) | LOC: OB 05-12 12:33 | PROVIDERS: PCP Nurse Practitioner Family; Referring Provider Family Medicine; Visit Provider Family Medicine | DX: O10.913 Unspecified pre-existing hypertension complicating pregnancy, third trimester (principal); O24.419 Gestational diabetes mellitus in pregnancy, unspecified control; Z3A.36 36 weeks gestation of pregnancy | CPT/HCPCS: 59025; 80053; 82570; 84156; 85025; G0378; G0379 ==

== ENCOUNTER → 2022-05-17 10:43 | Outpatient (CLI) | payer OTHER, SELFPAY ==
--- NOTE | 2022-05-17 10:44 | DI.US.S_ITS ---
PROCEDURE: US OB FOLLOW UP INDICATIONS: chronic HTN. Evaluate growth OUTSIDE/PRIOR DATING DATA: Last menstrual period (LMP): 08/24/2021. LMP-based estimated date of delivery (ADOLFO): 05/31/2022. First dating scan (date and location): 01/13/2022. Estimated date of delivery (ADOLFO) from first dating scan: 05/29/2022. TECHNIQUE: Real-time scanning was performed of the fetus, with image documentation. Endovaginal scanning: Not performed COMPARISON: [facility], OB FOLLOW UP, 01/26/2022, 10:51. FINDINGS: A single living intrauterine gestation is present. Presentation: Cephalic. Placenta: Placental position is anterior, without previa. Amniotic fluid index: 14.3 cm, normal range is 5-24 cm. Single deepest vertical pocket is 6.4 cm. heart rate: 149 beats per minute. Maternal cervical canal: Not well visualized. estimated gestational age: 38 weeks 2 days Composite gestational age from this scan: 37 weeks 4 days. Biometry: Biparietal diameter 9.2 cm 37 weeks 1 day Head circumference 33.1 cm 37 weeks 5 days Abdominal circumference 33.4 cm 37 weeks 2 days Femur length 7.4 cm 37 weeks 6 days Estimated weight: 3226 g, 44th percentile IMPRESSION: 1. Single living intrauterine in vertex presentation. 2. Estimated weight at the 44th percentile. Dictated by: Luke White M.D. on 05/17/2022 at 16:21 Approved by: Luke White M.D. on 05/17/2022 at 16:26
== END ==
PROVIDERS: PCP Nurse Practitioner Family; Referring Provider Family Medicine; Visit Provider Family Medicine
DX: O10.913 Unspecified pre-existing hypertension complicating pregnancy, third trimester; Z3A.37 37 weeks gestation of pregnancy
CPT/HCPCS: 76816

== ENCOUNTER 2022-05-17 11:16 | Outpatient (CLI) | payer OTHER, SELFPAY ==
--- NOTE | 2022-05-17 11:53 | P.TNLD_ITS ---
Visit Information Visit Information Date of evaluation: 05/17/22 Primary OB Provider: Annabel Bradley On-call OB Provider: Hemant Mcbride Reason for Evaluation: Yes non-stress test Comments/Additional reasons for admission: GDM A2 and chronic hypertension, 37+6 wks EGA; scheduled for induction next week Vital Signs Vital Signs: BP: 128/81 P: 95 T: 36.4C PFSH Medical History (Updated 05/09/22 @ 11:47 by Annabel Bradley MD) Acne (~2016) ADHD (~2008) Vision disorder Surgical History (Updated 11/25/21 @ 20:31 by Mariam Sotomayor) Anesthesia H/O tympanostomy (~2002) [place] teeth extracted Family History (Updated 11/25/21 @ 20:33 by Mariam Sotomayor) Family/Other Hypertension Adopted Mother Family estrangement Mental health problem Father Hypertension Sister Mental health problem Grandfather History of heart disease Social History marital status: number of children: 0 household members: spouse lives independently: Yes housing: apartment pets and animals: Yes (1 dog, 1 tortoise) education level: vocational occupational status: employed current occupational exposures/hazards: No special leo needs: No seatbelt use: always water heater temp set < 120 deg: No working smoke detector in home: Yes fire extinguisher in home: Yes carbon monox detector in home: Yes firearms in home: No do you feel safe at home: Yes Smoking Status: Former smoker Tobacco: How many years used: 2 second hand exposure: No alcohol intake: never substance use type: does not use during the past year weight has: remained stable well-balanced diet: daily or most days daily servings fruits/ve-4 caffeine: Yes Type(s) of exercise: walking and regular exercise frequency: 3-4 times per week Evaluation Evaluation Baseline heart rate: 140 Variability: Moderate (11-25) monitor accelerations: Present Monitor Decelerations: Absent Category of Tracing: Reactive Diagnosis, Plan/Disposition Final Diagnosis (1) Gestational diabetes: Status: Acute (2) Primary hypertension: Status: Acute Plan/Disposition Plan: Continue care plan with induction scheduled for next week. Labor precautions. OB Disposition: home
== END 2022-05-17 11:52 | disposition home or self-care (01) ==
LOC: OB 05-18 09:10
PROVIDERS: PCP Nurse Practitioner Family; Referring Provider Obstetrics & Gynecology; Visit Provider Obstetrics & Gynecology
DX: O24.419 Gestational diabetes mellitus in pregnancy, unspecified control (principal); O16.3 Unspecified maternal hypertension, third trimester; Z3A.37 37 weeks gestation of pregnancy
CPT/HCPCS: 59025; 76816; G0378; G0379

== ENCOUNTER 2022-05-20 15:56 | Outpatient (CLI) | payer OTHER, SELFPAY | END 2022-05-20 16:30 | disposition home or self-care (01) | LOC: LABOR 16:10 → OB 05-23 15:42 | PROVIDERS: PCP Nurse Practitioner Family; Referring Provider Obstetrics & Gynecology; Visit Provider Obstetrics & Gynecology | DX: O47.1 False labor at or after 37 completed weeks of gestation (principal); Z3A.38 38 weeks gestation of pregnancy | CPT/HCPCS: 59025; G0378; G0379 ==

== ENCOUNTER 2022-05-25 07:15 | Inpatient (IN) | payer OTHER, SELFPAY ==
--- NOTE | 2022-05-25 08:32 | PM.OBHP.IH.1 ---
OB HPI Date/Time Date of admission: 05/25/22 Date Patient Seen: 05/25/22 History of Present Condition Chief complaint: induction ADOLFO Calculator Estimated Delivery Date Method Current WG Current Estimate 06/01/22 Manual 39w 0d Final ADOLFO - RM Other Estimates 05/25/22 LMP (Certain) 40w 0d 06/01/22 Ultrasound #1 39w 0d Estimated Gestational Age (weeks): 39w0d : 1 Para: 0 Narrative: Pt is a 21yo at 39w0d here for IOL for chronic HTN. also complicated by GDMA1 with excellent control. The pt reports intermittent contractions in the evening before presentation. She denies any vaginal bleeding or LOF. She has been feeling her baby move regularly. The pt was noted to have elevated blood pressures at 25wks, with a single elevated at 14wks as well. She was initiated on PO Labetalol at 25wks. The pt was diagnosed with chronic HTN by MFM at 28wks. Her lab work remained reassuring, with only one elevated protein/creatinine ratio but 24hr protein normal. Labetalol was ultimately increased to 200mg BID with excellent BP control. She had reassuring testing and growth ultrasounds, with last growth scan 44th percentile (3226g) at 37w6d. care: good care, initiated at week # (8) and pounds weight gain (21) Dating criteria OB: based on 1st trimester US only Ultrasounds: normal 1st trimester US and normal mid trimester US Obstetrical complications: gestational diabetes (A1) Medical complications OB: cardiovascular (chronic HTN) Indications Indication for induction OB: other (chronic HTN) Preadmission Labs Last OB Lab Results: Blood Type B Positive 10/26/21 16:04 Antibody Screen Negative 10/26/21 16:04 Hematocrit 32.1 % (36-46) L 05/25/22 08:30 Hemoglobin 10.9 g/dL (12.0-16.0) L 05/25/22 08:30 Hepatitis B Surface Antigen Negative s/c (NEGATIVE) 10/26/21 16:04 Hepatitis C Antibody Negative s/c (NEGATIVE) 10/26/21 16:04 Rubella Antibody 15.3 IU/mL (>15) 10/26/21 16:04 Varicella-Zoster IgG Antibody 1882 index (Immune >165) 10/26/21 16:04 Glucose 1 Hour 168 mg/dL (76-139) H 02/28/22 14:17 Group B Streptococcus (PCR) Neg for grp b strep 05/02/22 10:55 Glucose Tolerance Testing: Fasting (81), 1 hr (167), 2 hr (156) and 3 hr (102) -: Chlamydia screen: negative, Gonorrhea screen: negative and Urine: negative External Labs -: Urine: negative Evaluation Evaluation Baseline heart rate: 145 Variability: Moderate (11-25) monitor accelerations: Present Monitor Decelerations: Absent Status: Category l Dilation (cm): 1.5 Effacement (%): 75 Dilation: 1-2 cm Effacement: 60-70% station: 0 Position of cervix: posterior Consistency: soft Lance score: 7 PFSH Medical History (Updated 05/20/22 @ 15:56 by Hemant Mcbride MD) Acne (~2016) ADHD (~2008) Vision disorder Surgical History (Updated 11/25/21 @ 20:31 by Mariam Sotomayor) Anesthesia H/O tympanostomy (~2002) [place] teeth extracted Family History (Updated 11/25/21 @ 20:33 by Mariam Sotomayor) Family/Other Hypertension Adopted Mother Family estrangement Mental health problem Father Hypertension Sister Mental health problem Grandfather History of heart disease Social History marital status: number of children: 0 household members: spouse lives independently: Yes housing: apartment pets and animals: Yes (1 dog, 1 tortoise) education level: vocational occupational status: employed current occupational exposures/hazards: No special leo needs: No seatbelt use: always water heater temp set < 120 deg: No working smoke detector in home: Yes fire extinguisher in home: Yes carbon monox detector in home: Yes firearms in home: No do you feel safe at home: Yes Smoking Status: Former smoker Tobacco: How many years used: 2 second hand exposure: No alcohol intake: never substance use type: does not use during the past year weight has: remained stable well-balanced diet: daily or most days daily servings fruits/ve-4 caffeine: Yes Type(s) of exercise: walking and regular exercise frequency: 3-4 times per week Meds Home Medications and Allergies Home Medications Medication Instructions Recorded Confirmed Type loratadine 10 mg tablet (Allergy 10 mg PO DAILY 10/12/21 05/20/22 History Relief (loratadine)) prenat.vits,ángela,yra-vknt-aiply 1 tab PO DAILY 10/12/21 05/20/22 History glucometer test strips #180 ea 03/31/22 05/20/22 Rx lancet #180 ea 03/31/22 05/20/22 Rx glucometer #1 ea 04/01/22 05/20/22 Rx labetalol 100 mg tablet 100 mg PO BID #60 tabs 04/25/22 05/20/22 Rx double electric breast pump and #1 ea 05/02/22 05/20/22 Rx supplies labetalol 200 mg tablet See Rx Instructions .Route 05/09/22 05/20/22 Rx .COMPLEX #180 tabs Allergies Allergy/AdvReac Type Severity Reaction Status Date / Time No Known Allergies Allergy Verified 05/20/22 15:11 OB Exam Narrative Exam Narrative: Gen: NAD, sitting comfortably in bed, appears well CV: RRR, no murmurs Resp: clear to auscultation bilaterally Abd: soft, nontender, gravid Ext: no edema Objective Labs Result Diagrams: 05/25/22 08:30 Assessment and Plan Assessment and Plan Assessment and Plan narrative: 21yo at 39w0d here for IOL for chronic HTN. also complicated by GDMA1 with excellent control. GBS negative, Rh positive. - Expectant management, anticipate - FHT reassuring - Start pitocin, titrate as tolerated - Desires natural methods for pain control - GBS negative, no prophylaxis indicated
[2022-05-25] MEDS: OXYTOCIN PREMIX 30 UNIT/500 ML PLAST..BAG IV (08:41)
[2022-05-25] MEDS: LACTATED RINGERS 1,000 ML 100 ML IV (08:42)
[2022-05-25 08:48] LABS: Add Manual Diff / Slide Review NO; Basophils Absolute Auto 0 /uL (0-100); Basophils Percent Auto 0.2 % (0-2); Eosinophils Absolute Auto 0 /uL (0-450); Eosinophils Percent Auto 0.2 % (2-4); Hematocrit 32.1 % (36-46); Hemoglobin 10.9 g/dL (12.0-16.0); Lymphocytes Absolute Auto 600 /uL (1100-4500); Lymphocytes Percent Auto 13.3 % (25-40); Mean Corpuscular HGB Conc 33.9 % (30-36); Mean Corpuscular Hemoglobin 29.9 PG (26-34); Monocytes Absolute Auto 300 /uL (0-900); Monocytes Percent Auto 6.5 % (3-14); Neutrophils Absolute Auto 3400 /uL (1500-7000); Neutrophils Percent Auto 79.8 % (50-75); Platelet Count 158 X10^3/uL (150-400); Red Blood Cell Count 3.65 X10^6/uL (4.0-5.2); Red Cell Distribution Width 13.2 % (11.6-14.8); White Blood Cell Count 4.3 X10^3/uL (4.5-11.0)
[2022-05-25 09:22] LABS: COVID19 -Nasal RAPID POSITIVE (Negative)
[2022-05-25 09:37] VITALS: BP 117/88
[2022-05-25 10:35] LABS: Alanine Aminotransferase 16 IU/L (<35); Albumin 3.5 g/dL (3.5-5.0); Albumin Globulin Ratio 1.1 (1.0-2.8); Alkaline Phosphatase 148 U/L (38-126); Aspartate Aminotransferase 22 IU/L (14-36); BUN Creatinine Ratio 21.2 (6-22); Bilirubin Total 0.3 mg/dL (0.2-1.3); Blood Urea Nitrogen 14 mg/dL (7-17); Calcium 8.5 mg/dL (8.4-10.2); Carbon Dioxide 19 mmol/L (22-32); Chloride 104 mmol/L (98-107); Estimated Glomerular Filt Rate > 60 mL/min (>60); Globulin 3.3 g/dL (1.7-4.1); Glucose 119 mg/dL (70-100); HEMOLYSIS < 15 (0-50); Potassium 3.7 mmol/L (3.4-5.1); Sodium 132 mmol/L (137-145); Total Protein 6.8 g/dL (6.3-8.2)
[2022-05-25 10:47] LABS: Creatinine Urine Random 225.1 mg/dL; Protein (Total) Urine Random 28 mg/dL (0-12); Protein Creatinine Ratio Urine 0.12 GRAM/24H
--- NOTE | 2022-05-25 13:46 | PM.OBPNLAB ---
Date/Time Date Patient Seen: 05/25/22 Pain Control Pain control: tolerating well Pelvic Exam Dilation (cm): 3 Effacement (%): 90 station: 0 Amniotic membrane status: Ruptured Comments: After informed consent, AROM performed with production of clear fluid. Contractions Contraction frequency (min): 3 Status status: Category l Heart Rate Baseline: 145 Monitor Accelerations: Absent Monitor Decelerations: Absent Monitor Variability: Moderate Assessment and Plan Comments: 21yo at 39w0d here for IOL for chronic HTN.? also complicated by GDMA1 with excellent control.? GBS negative, Rh positive. On pitocin with cervical change. AROM with clear fluid present. - Expectant management, anticipate - FHT reassuring - Continue pitocin, titrate as tolerated - Desires natural methods for pain control
[2022-05-25] MEDS: FENT 2MCG/ML BUPIV 0.125% EPI 200 MCG/100 ML PLAST..BAG 6 MCG EPIDURAL (16:12)
[2022-05-25 17:27] VITALS: BP 136/85; PULSE 74
[2022-05-25] MEDS: LABETALOL 100 MG TABLET 200 MG PO (17:27)
--- NOTE | 2022-05-25 18:45 | PM.OBPRVD ---
Events: Other (chronic HTN) Labor & Delivery Delivery date: 05/25/22 Intrapartal Events: None Cervical ripening method: none Induction method: per pitocin protocol Delivery augmentation: rupture of membranes Delivery monitor: external FHT and external uterine Route of delivery: Episiotomy description: None L&D Laceration Description: Perineal - 2nd Degree and Labial (right) Quantitative Blood Loss: 150 Anesthesia Type: Epidural Complications: None Narrative: PROCEDURE: at 39w0d presented for IOL for chronic HTN and was admitted to Labor and Delivery. She had pitocin for induction, and then AROM was performed with clear fluid present. The patient progressed through the 1st stage over 2.5 hours. Pain was controlled with an epidural. The patient progressed through the 2nd stage over 20 minutes and delivered a viable male infant with APGARs 9/9 at 17:55 via without complications. The cord was cut and clamped after it stopped pulsating. The perineum and vagina were inspected with 2nd degree perineal laceration repaired with 2-O Vicryl, and right labial laceration repaired with 3-O Chromic. PREPROCEDURE DIAGNOSIS: Intrauterine at 39w0d GBS negative RH positive POSTPROCEDURE DIAGNOSIS: Intrauterine at 39w0d, delivered Same as preprocedure Baby 1: gender: Male Presentation: vertex Position: Left Occiput Anterior Placenta delivery description: Spontaneous Cord Vessel Description: 3 Vessels score (1 min): 9 score (5 min): 9 weight: 6 lb 5.095 oz Plan for aftercare: Routine care
[2022-05-25] MEDS: ACETAMINOPHEN 325 MG TABLET 650 MG PO (20:07)
[2022-05-25] MEDS: IBUPROFEN 600 MG TABLET PO (20:07)
[2022-05-25] MEDS: DERMOPLAST SPRAY 20% 60 ML 1 SPRAY TOP (20:08)
[2022-05-26] MEDS: ACETAMINOPHEN 325 MG TABLET 650 MG PO (05:20)
[2022-05-26] MEDS: IBUPROFEN 600 MG TABLET PO (05:21)
[2022-05-26] MEDS: PRENATAL VIT,CALC/IRON/FOLIC 1 TABLET 1 TAB PO (09:07)
[2022-05-26] MEDS: DOCUSATE 100 MG CAPSULE PO (09:07)
[2022-05-26] MEDS: FERROUS SULFATE 325 MG TABLET PO (09:07)
--- NOTE | 2022-05-26 09:42 | P.DS_ITS ---
Discharge Providers Provider Date of admission: 05/25/22 18:01 Discharge Date: 05/26/22 Primary care physician: ASHLEY Rios-C Consults: 05/26/22 18:43 Consult to Ornament [employer] Hand Routine Comment: Discharge provider: Annabel Bradley MD Summary Hospital Course Date Patient Seen: 05/26/22 Diagnoses: Intrauterine at 39w0d GBS negative RH positive Chronic HTN GDMA1 Hospital Course: The pt presented for IOL for cHTN. She received pitocin for induction, and AROM was performed with clear fluid present. She had an epidural for pain control. She progressed to complete and had an of a viable baby boy without complications. A 2nd degree perineal and right labial laceration were repaired. , there were no complications. At the time of discharge she was voiding, ambulating, and passing flatus without difficulty. Her lochia was decr easing appropriately. She was with good latch. Her pain was well controlled. She will f/u in 6 week for check. Peripartum Data Infant Delivery Method: Natural Vaginal Laceration Description: Perineal - 2nd Degree and Labial Episiotomy description: None Procedures: Spontaneous vaginal delivery complications: none 1: Gender: Male Disposition of : home Discharge Diagnosis (1) Gestational diabetes: Status: Acute (2) Primary hypertension: Status: Acute (3) Spontaneous vaginal delivery: Status: Acute Status at Discharge Cognitive/behavioral status at discharge: oriented Functional status at discharge: independent ambulation Overall status at discharge: patient is progressing back to baseline Time Spent with Patient Time attestation: Total time spent providing and/or coordinating discharge services: Objective Labs Result Diagrams: 05/25/22 08:30 05/25/22 10:25 Labs: Laboratory Results - last 24 hr 05/25/22 05/25/22 05/25/22 08:30 10:18 10:25 Sodium 132 L Potassium 3.7 Chloride 104 Carbon Dioxide 19 L BUN 14 Creatinine 0.66 Estimated GFR > 60 BUN/Creatinine Ratio 21.2 Glucose 119 H Calcium 8.5 Total Bilirubin 0.3 AST 22 ALT 16 Alkaline Phosphatase 148 H Total Protein 6.8 Albumin 3.5 Globulin 3.3 Albumin/Globulin Ratio 1.1 U Random Total Protein 28 H Urine Creatinine 225.1 Protein/Creatinin Ratio 0.12 Blood Type B Positive Antibody Screen Negative Exam Narrative Exam Narrative: Gen: NAD, sitting comfortably in bed, appears well CV: RRR, no murmurs Resp: clear to auscultation bilaterally Abd: soft, appropriately tender, fundus firm and below the umbilicus, nondistended Ext: no edema Discharge Plan Discharge Plan Patient Disposition: Home Discharge orders & Medications Prescriptions: New acetaminophen 325 mg Tablet 650 mg PO Q6HR PRN (Reason: Pain, Mild (1-3)) Qty: 30 0RF ferrous sulfate 325 mg (65 mg iron) Tablet 325 mg PO DAILY Qty: 30 0RF docusate sodium 100 mg Capsule 100 mg PO DAILY Qty: 30 0RF ibuprofen 600 mg Tablet 600 mg PO Q6HR PRN (Reason: Pain, Mild (1-3)) Qty: 30 0RF Continued (DME) double electric breast pump and supplies See Rx Instructions .ROUTE .MEDSUPPLY Qty: 1 0RF Rx Instructions: As directed loratadine [Allergy Relief (loratadine)] 10 mg tablet 10 mg PO DAILY prenat.vits,ángela,snw-oepw-nvspn Tablet 1 tab PO DAILY Discontinued (DME) glucometer test strips See Rx Instructions .Route .MEDSUPPLY Qty: 180 2RF Rx Instructions: test glucose 3 times daily, Fasting in the AM, 2 hours after eating. (DME) lancet See Rx Instructions .Route .MEDSUPPLY Qty: 180 2RF Rx Instructions: test glucose 3 times daily (DME) glucometer See Rx Instructions .Route .MEDSUPPLY Qty: 1 0RF Rx Instructions: As directed labetalol 200 mg tablet See Rx Instructions .ROUTE .COMPLEX Qty: 180 0RF Dose Instruction: TAKE 1 TABLET BY MOUTH TWICE DAILY Rx Instructions: TAKE 1 TABLET BY MOUTH TWICE DAILY Follow up/Referrals: Annabel Bradley MD [Physician] - (please schedule your 6 week appt on Monday, May 30.) Diet/Activity/Treatments Diet: Diet as Tolerated and Regular Skin/Wound/Dressing Care Report to your healthcare provider any signs of infection, such as:: chills, fever, increased pain and unusual drainage Visit Report/Discharge Packet Instructions: DI for Labor and Delivery, Vaginal Stand Alone Forms: Discharge: Care, Patient Portal/API, Stroke Signs & Symptoms Discharge Data Primary Care Provider: Allison Lucas Discharges patient from system. Discharge Date/Time: 05/26/22 15:40
[2022-05-26 16:33] VITALS: BP 136/85; PULSE 74; TEMP 36.1
--- NOTE | 2022-05-26 16:38 | PC.NURSE ---
1500 IV d/cd intact, bandaid to IV site
== END 2022-05-26 15:40 | disposition home or self-care (01) | DRG 805 ==
PROVIDERS: Admitting Provider Family Medicine; PCP Nurse Practitioner Family; Referring Provider Family Medicine; Visit Provider Family Medicine
DX: O24.410 Gestational diabetes mellitus in pregnancy, diet controlled (principal); U07.1 COVID-19; Z37.0 Single live birth; O98.52 Other viral diseases complicating childbirth; O10.92 Unspecified pre-existing hypertension complicating childbirth; D62 Acute posthemorrhagic anemia; O70.1 Second degree perineal laceration during delivery; Z3A.39 39 weeks gestation of pregnancy; Z67.20 Type B blood, Rh positive; O90.81 Anemia of the puerperium
CPT/HCPCS: 36415; 59050; 59400; 80053; 82570; 84156; 85025; 86850; 86900; 86901; 87635; C9803; G0378; G0379; J2590

== ENCOUNTER → 2022-07-13 15:50 | Outpatient (CLI) | payer OTHER, SELFPAY ==
[2022-07-13 20:09] LABS: Urine N gonorrhoeae NOT DETECTED
[2022-07-13 20:11] LABS: Urine Chlamydia NOT DETECTED
== END ==
PROVIDERS: PCP Nurse Practitioner Family; Visit Provider Family Medicine
DX: Z30.430 Encounter for insertion of intrauterine contraceptive device (principal)
CPT/HCPCS: 87491; 87591